=== PATIENT | female | born 1965 | race Two or more races ===

== ENCOUNTER 2016-10-24 09:17 | Emergency (ER) | payer SELFPAY ==
[~2016-10-24] VITALS: Ht 154.9 cm; Wt 98.4 kg
[2016-10-24] MEDS ORDERED: ACETAMINOPHEN 500 MG TAB PO ONE ×2 (09:22→09:30)
[2016-10-24 10:18] VITALS: BP 123/68
[2016-10-24] MEDS ORDERED: IBUPROFEN 800 MG TAB PO ONE (10:45)
== END 2016-10-24 11:40 | disposition home or self-care (01) ==
LOC: ER 09:20
DX: S82.831A Other fracture of upper and lower end of right fibula, initial encounter for closed fracture (principal); W19.XXXA Unspecified fall, initial encounter; Y93.89 Activity, other specified; Y99.8 Other external cause status; Y92.89 Other specified places as the place of occurrence of the external cause
CPT/HCPCS: 29505; 73610